=== PATIENT | female | born 1950 | race Caucasian/White ===

== ENCOUNTER → 2024-05-23 08:53 | Outpatient (REF) | payer MEDICARE, OTHER, SELFPAY | LOC: PAVMRI 08:53 | PROVIDERS: ATTENDING PHYSICIAN Family Medicine; FAMILY PHYSICIAN Family Medicine | DX: M54.50 Low back pain, unspecified (principal); M54.16 Radiculopathy, lumbar region; M43.06 Spondylolysis, lumbar region | CPT/HCPCS: 72148 ==

== ENCOUNTER → 2025-05-17 13:36 | Outpatient (REF) | payer MEDICARE, OTHER, SELFPAY | LOC: RAD 13:36 | PROVIDERS: ATTENDING PHYSICIAN Internal Medicine Rheumatology; FAMILY PHYSICIAN Family Medicine | DX: M13.0 Polyarthritis, unspecified (principal) | CPT/HCPCS: 72202; 73130; 73523 ==

== ENCOUNTER → 2025-05-31 13:37 | Outpatient (REF) | payer MEDICARE, OTHER, SELFPAY | LOC: HWRAD 13:37 | PROVIDERS: ATTENDING PHYSICIAN Specialist; FAMILY PHYSICIAN Family Medicine | DX: M19.011 Primary osteoarthritis, right shoulder (principal) | CPT/HCPCS: 73200 ==

== ENCOUNTER 2025-07-11 11:41 | Inpatient (IN) | payer MEDICARE, OTHER, SELFPAY ==
--- NOTE | 2025-06-08 15:56 | CM ---
Demographics: confirmed
Living situation: with partner and daughter
Support Person Post Operatively: Partner
History of
VN: no
SNF: No
Outpatient: [facility]
Has patient purchased required equipment: yes
PCP: Active
Pharmacy: [facility]
Post Operative Discharge Plan: YEYO, plan for discharge to home with family and outpatient PT.
[2025-06-27 13:51] LABS: Hematocrit 38.4 % (37.0-47.0); Hemoglobin 13.0 g/dL (12.0-16.0); Mean Corp Hgb Conc. 33.9 g/dL (33.0-37.0); Mean Corpuscular Volume 86.1 fL (81.0-99.0); Platelet Count 268 10^3/uL (130-400); Red Cell Dist. Width 14.1 % (11.5-14.5)
[2025-06-27 13:56] VITALS: BMI 24.2
[2025-06-27 14:03] LABS: ALT (SGPT) 22 U/L (0-35); AST (SGOT) 19 U/L (14-36); Albumin 4.7 g/dl (3.5-5.0); Alkaline Phosphatase 86 U/L (38-126); Blood Urea Nitrogen 19 mg/dl (7-17); Calcium 9.6 mg/dl (8.4-10.2); Carbon Dioxide 29 mmol/L (22-30); Chloride 102 mmol/L (98-107); Estimated Creatinine Clearance 50 ml/min; Glucose 102 mg/dl (70-99); Potassium 4.9 mmol/L (3.5-5.1); Sodium 137 mmol/L (135-145); Total Protein 7.0 g/dl (6.3-8.2); eGFR > 60.00
[2025-06-27 16:39] VITALS: BMI 24.2
[2025-06-28 09:40] LABS: Glycohemoglobin (HgbA1c) 5.9 % (4.0-5.6)
[2025-07-11] VITALS (9 sets, daily range): BP systolic 124–147; BP diastolic 51–81; BMI 24.2
--- NOTE | 2025-07-11 10:27 | W.PN.UPDATE ---
Update Note
Progress Note Update
R shoulder OA w/ rotator cuff arthropathy s/p R Reverse TSA w/ Dr Iqbal 07/11/25
DVT prophylaxis - ASA, b/l venous foot pumps
HTN - + parameters - monitor BP
History of post-op NSTEMI/troponin elevation
Coronary artery disease, nonobstructive by cath 2022
- Monitor on tele
Reported left subclavian stenosis with steal - BPs to be taken if R or L LE
GERD - continue PPI therapy
Spinal stimulator with h/o paraspinal infection and possible bacteremia - IV Ancef matt-op
- Doxycycline upon d/c
Daily alcohol - 2 glasses of wine nightly reported
- Supplement w/ thiamine and folic acid
- Gabapentin HS
- Consider Serax
- Monitor for potential s/sx of withdrawal
Hyperlipidemia
Venous insufficiency
Head and neck cancer, thyroid origin, resected s/p radioactive iodine 1983
Hypothyroidism
Depression
Anxiety
Remote tobacco abuse.
[2025-07-11] MEDS: CELEBREX 200 MG PO (12:18)
[2025-07-11] MEDS: TYLENOL 1000 MG PO (12:18)
[2025-07-11] MEDS: NORMOSOL-R/PLASMALYTE-A 1000 IV ×2 (12:45→18:19)
[2025-07-11] MEDS: LIPITOR 40 MG PO (18:23)
[2025-07-11] MEDS: PROTONIX 20 MG PO (18:23)
[2025-07-11] MEDS: SYNTHROID 75 MCG PO (18:23)
[2025-07-11] MEDS: ASPIRIN 325 MG PO (18:23)
[2025-07-11] MEDS: FOLVITE 0.5 MG PO (18:24)
[2025-07-11] MEDS: VITAMIN B1 100 MG PO (18:24)
[2025-07-11] MEDS: CYMBALTA DELAYED RELEASE 90 MG PO (18:24)
[2025-07-11] MEDS: WELLBUTRIN XL (24 hour extended release) 150 MG PO (18:30)
--- NOTE | 2025-07-11 19:14 | PTCARENOTE ---
Pt arrived to [facility] s/p Right reverse TSA. Right shoulder dressing with small sanguineous drainage. Right skin tear dressing at top of primaseal with gauze and tegaderm c/d/i/. Admission questions answered. Bed locked and in lowest position. Care
ongoing.
[2025-07-11] MEDS: TYLENOL 650 MG PO (20:11)
[2025-07-11] MEDS: DIOVAN 160 MG PO (20:12)
[2025-07-11] MEDS: SENOKOT 17.2 MG PO (20:12)
[2025-07-11] MEDS: DECADRON 4 MG PO (20:12)
[2025-07-11] MEDS: COLACE 100 MG PO (20:12)
[2025-07-11] MEDS: BACTROBAN 2% OINTMENT 1 APPLIC NASAL (20:22)
[2025-07-11] MEDS: NEURONTIN 300 MG PO (22:53)
[2025-07-11] MEDS: ANCEF 5 IV (22:53)
[2025-07-12] MEDS: TYLENOL 650 MG PO ×4 (00:46→11:58)
[2025-07-12] MEDS: ROXICODONE 5 MG PO ×2 (00:50→09:47)
[2025-07-12 03:41] VITALS: BP 113/70
[2025-07-12] MEDS: SYNTHROID 75 MCG PO (05:32)
[2025-07-12] MEDS: ANCEF 5 IV (05:32)
[2025-07-12 07:45] VITALS: BP 109/69
[2025-07-12] MEDS: CYMBALTA DELAYED RELEASE 90 MG PO (08:40)
[2025-07-12] MEDS: CELEBREX 200 MG PO (08:41)
[2025-07-12] MEDS: DECADRON 4 MG PO (08:41)
[2025-07-12] MEDS: WELLBUTRIN XL (24 hour extended release) 150 MG PO (08:41)
[2025-07-12] MEDS: COLACE 100 MG PO (08:44)
[2025-07-12] MEDS: PROTONIX 20 MG PO (08:44)
[2025-07-12] MEDS: SENOKOT 17.2 MG PO (08:44)
[2025-07-12] MEDS: FOLVITE 0.5 MG PO (08:44)
[2025-07-12] MEDS: ASPIRIN 325 MG PO (08:44)
[2025-07-12] MEDS: VITAMIN B1 100 MG PO (08:44)
[2025-07-12] MEDS: BACTROBAN 2% OINTMENT 1 APPLIC NASAL (08:45)
[2025-07-12] MEDS: DIOVAN PO (08:45)
--- NOTE | 2025-07-12 09:41 | W.PN.ORTHO ---
Today's Communication / Plan
-
Await OT recs.
D/c later today if remaining clinically stable.
Assessment
.
Distal Motor Intact: Yes
Dressing:
Moderate incisional bleeding noted. Will change dressing.
Assessment:
R shoulder OA w/ rotator cuff arthropathy s/p R Reverse MARTHA w/ Dr Iqbal 07/11/25
DVT prophylaxis - ASA, b/l venous foot pumps
Post-op incisional bleeding - change dressing and monitor
- TXA now to help promote healing
HTN - + parameters - BPs overall stable
History of post-op NSTEMI/troponin elevation
Coronary artery disease, nonobstructive by cath 2022
- Maintaining NSR on tele
Reported left subclavian stenosis with steal - BPs to be taken if R or L LE
GERD - continue PPI therapy
Spinal stimulator with h/o paraspinal infection and possible bacteremia - IV Ancef matt-op
- Doxycycline upon d/c
Daily alcohol - 2 glasses of wine nightly reported
- Supplement w/ thiamine and folic acid
- Gabapentin HS
- Consider Serax
- No s/sx of withdrawal prior to d/c
Hyperlipidemia
Venous insufficiency
Head and neck cancer, thyroid origin, resected s/p radioactive iodine 1983
Hypothyroidism
Depression
Anxiety
Remote tobacco abuse.
Plan
.
Surgery / Date: R Reverse MARTHA w/ Dr Iqbal 07/11/25
DVT Prophylaxis: Aspirin
Activity:
Out of bed.
PT/OT
Discharge Plan: Home
Subjective
.
.:
Patient resting comfortably in bed.
R shoulder pain minimal w/ current pain meds.
Denies any new significant complaints.
Eager for potential d/c today.
Vital Signs and Labs
.
Vital Signs and Labs:
Lab Results
06/27/25 13:25
06/27/25 13:25
Temp Pulse Resp BP Pulse Ox
98.5 F 90 16 109/69 95
07/12/25 03:41 07/12/25 08:45 07/12/25 03:41 07/12/25 08:45 07/12/25 03:41
Non-invasive Hgb result: 14.1
Physical Exam
-
HEENT: No pallor, cyanosis, or jaundice. Throat clear.
NECK: Supple. No JVD.
RESPIRATORY: Lungs clear to auscultation.
CVS: S1, S2 normal. RRR.�
ABDOMEN: Soft, non-tender. No distension.
EXTREMITIES: + RUE sling. Able to wiggle fingers b/l. Good mill order scheduler strength, radial pulses b/l. B/l LE strength equal, no calf pain with palpation/dorsiflexion. Calves soft.
INSTRUMENTATION SUPERVISOR: AOx3. No focal deficits. resawyer grossly intact
--- NOTE | 2025-07-12 09:52 | W.DS.TRANS ---
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
-
Discharge Instructions:
Sleep Apnea Risk Low
Discharge Diagnosis/Procedures R shoulder OA w/ rotator cuff arthropathy s/p R
Reverse TSA w/ Dr Iqbal 07/11/25
Diet Regular
Additional Diets Adequate hydration, minimize opioids, and wear
TEDs stockings to prevent low blood pressure/
dizziness.
Activity As tolerated
Additional Activity Non-weightbearing right upper extremity
Driving Restrictions Not until seen by your Dr
Bathing Restrictions OK to Shower
Wound Care Leave dressing on until seen by surgeon's office
for follow-up.
Instructions:
Stand-Alone Forms: Total Shoulder Replacement D/C
Changes to Home Medications: Yes
Discharge Medications:
DC Medications w/original date entered in [facility]
levothyroxine 75 mcg tablet 75 mcg PO DAILY 04/29/23
omeprazole 20 mg capsule,delayed release 20 mg PO DAILY 04/29/23
duloxetine 60 mg capsule,delayed release 90 mg PO DAILY 05/05/23
atorvastatin 40 mg tablet 40 mg PO QPM #30 tabs 05/28/23
bupropion HCl 150 mg 24 hr tablet, extended release 150 mg PO DAILY 06/26/25
cyanocobalamin (vitamin B-12) 1,000 mcg/mL injection solution 1,000 mcg SC MONTHLY 06/26/25
multivitamin with minerals-folic acid 120 mcg chewable tablet (Women's Multivitamin Gummies) 2 tab PO DAILY 06/26/25
turmeric root extract 150 mg-coby root extract 25 mg chewable tablet 2 tab PO DAILY 06/26/25
Held on 07/12/25. Instructions: Resume on 07/19/25.
celecoxib 200 mg capsule 200 mg PO DAILY Anti-inflammatory #14 caps 06/27/25
dexamethasone 4 mg tablet 4 mg PO BID inflammation #6 tabs 06/27/25
doxycycline hyclate 100 mg capsule 100 mg PO BID infection prevention #10 caps 06/27/25
gabapentin 300 mg capsule 300 mg PO HS sleep/pain #10 caps 06/27/25
ondansetron 4 mg disintegrating tablet 4 mg PO Q6H PRN n/v #20 tabs 06/27/25
oxycodone 5 mg tablet 5 mg PO Q6H PRN 1 tab moderate pain, 2 tabs severe pain #30 tabs 06/27/25
Saccharomyces boulardii 250 mg capsule (Florastor) 250 mg PO BID #10 caps 07/12/25
acetaminophen 500 mg tablet (Acetaminophen Extra Strength) 1,000 mg (2 x 500 mg) PO Q6H #60 tabs 07/12/25
amlodipine 5 mg tablet 5 mg PO DAILY #1 tab 07/12/25
aspirin 325 mg tablet 325 mg PO DAILY #30 tabs 07/12/25
docusate sodium 100 mg capsule 100 mg PO BID #30 caps 07/12/25
polyethylene glycol 3350 17 gram oral powder packet (Miralax) 17 g PO DAILY PRN Constipation #14 ea 07/12/25
sennosides 8.6 mg tablet (Carin-fiordaliza) 17.2 mg (2 x 8.6 mg) PO BID #30 tabs 07/12/25
simethicone 250 mg capsule (Gas-X) 250 mg PO DAILYPRN PRN Flatulance #0 caps 07/12/25
valsartan 160 mg tablet 160 mg PO BID #1 tab 07/12/25
Home Medication Changes
celecoxib 200 mg capsule 200 mg PO DAILY Anti-inflammatory #14 caps 06/27/25
dexamethasone 4 mg tablet 4 mg PO BID inflammation #6 tabs 06/27/25
doxycycline hyclate 100 mg capsule 100 mg PO BID infection prevention #10 caps 06/27/25
gabapentin 300 mg capsule 300 mg PO HS sleep/pain #10 caps 06/27/25
ondansetron 4 mg disintegrating tablet 4 mg PO Q6H PRN n/v #20 tabs 06/27/25
oxycodone 5 mg tablet 5 mg PO Q6H PRN 1 tab moderate pain, 2 tabs severe pain #30 tabs 06/27/25
Saccharomyces boulardii 250 mg capsule (Florastor) 250 mg PO BID #10 caps 07/12/25
acetaminophen 500 mg tablet (Acetaminophen Extra Strength) 1,000 mg (2 x 500 mg) PO Q6H #60 tabs 07/12/25
aspirin 325 mg tablet 325 mg PO DAILY #30 tabs 07/12/25
docusate sodium 100 mg capsule 100 mg PO BID #30 caps 07/12/25
polyethylene glycol 3350 17 gram oral powder packet (Miralax) 17 g PO DAILY PRN Constipation #14 ea 07/12/25
sennosides 8.6 mg tablet (Carin-fiordaliza) 17.2 mg (2 x 8.6 mg) PO BID #30 tabs 07/12/25
Pending Results: No
--- NOTE | 2025-07-12 10:23 | CM ---
Cm reviewed medical records. IMM given.
PLAN: home with family support.
[2025-07-12] MEDS: CYKLOKAPRON 1300 MG PO (10:27)
[2025-07-12 12:00] VITALS: PULSE 95; O2SAT 93
[2025-07-12 12:05] VITALS: BP 149/85
[2025-07-12 14:25] VITALS: BP 135/70
--- NOTE | 2025-07-12 14:51 | W.PN.UPDATE ---
Update Note
Progress Note Update
Incisional bleeding worsened unfortunately after her therapy session today.
Jayson James PA-C cleaned her incision w/ Betadine and applied brooke to the entire incision.
Small gauze was placed over a small skin tear just lateral to the proximal incision.
She was told a little strikethrough in the bandage is probably expected but to call the office should more significant bleeding be present prior to the weekend.
She is clinically stable for d/c.
[2025-07-12] MEDS: TYLENOL PO (16:00)
== END 2025-07-12 15:30 | disposition home or self-care (01) | DRG 483 ==
LOC: 2 SOUTH 11:41
PROVIDERS: ADMITTING PHYSICIAN Specialist; FAMILY PHYSICIAN Family Medicine; REFERRING PHYSICIAN Internal Medicine Cardiovascular Disease
PROC: 0RRJ00Z Replacement of Right Shoulder Joint with Reverse Ball and Socket Synthetic Substitute, Open Approach (ICD-10-PCS; 2025-07-11)
DX: M19.011 Primary osteoarthritis, right shoulder (principal); I10 Essential (primary) hypertension; E78.5 Hyperlipidemia, unspecified; I25.2 Old myocardial infarction; I25.10 Atherosclerotic heart disease of native coronary artery without angina pectoris; I87.2 Venous insufficiency (chronic) (peripheral); Z87.891 Personal history of nicotine dependence; K21.9 Gastro-esophageal reflux disease without esophagitis; F32.A Depression, unspecified; F41.9 Anxiety disorder, unspecified; E89.0 Postprocedural hypothyroidism; Z88.0 Allergy status to penicillin; Z90.710 Acquired absence of both cervix and uterus
CPT/HCPCS: 36415; 73020; 80053; 83036; 85027; 87070; 97167; 97535; C1713; C1776

== ENCOUNTER 2025-09-03 17:27 | Emergency (ER) | payer MEDICARE, OTHER, SELFPAY ==
[2025-09-03 17:29] VITALS: BP 146/84
[2025-09-03 17:49] LABS: Hematocrit 38.5 % (37.0-47.0); Hemoglobin 12.9 g/dL (12.0-16.0); Mean Corp Hgb Conc. 33.5 g/dL (33.0-37.0); Mean Corpuscular Volume 85.4 fL (81.0-99.0); Nucleated Red Blood Cells % 0 %; Platelet Count 264 10^3/uL (130-400); Red Cell Dist. Width 13.8 % (11.5-14.5)
[2025-09-03 18:15] LABS: ALT (SGPT) 26 U/L (0-35); AST (SGOT) 22 U/L (14-36); Albumin 4.5 g/dl (3.5-5.0); Alkaline Phosphatase 87 U/L (38-126); Blood Urea Nitrogen 13 mg/dl (7-17); Calcium 9.4 mg/dl (8.4-10.2); Carbon Dioxide 26 mmol/L (22-30); Chloride 103 mmol/L (98-107); Glucose 124 mg/dl (70-99); Lipase 49 U/L (23-300); Potassium 3.3 mmol/L (3.5-5.1); Sodium 138 mmol/L (135-145); Total Protein 6.8 g/dl (6.3-8.2); eGFR > 60.00
[2025-09-03] MEDS: NSS 1000 IV (19:56)
[2025-09-03] MEDS: TYLENOL 650 MG PO (19:56)
[2025-09-03 20:00] VITALS: BP 128/66
[2025-09-03 20:18] LABS: D-Dimer 1.25 ug/mlFEU (0.00-0.50)
--- NOTE | 2025-09-03 21:01 | ED.GENMED ---
Addendum entered and electronically signed by Sharon Nunez DO 09/05/25 13:30:
[facility] pharmacist called stating that prescription that had been sent by physician central supply assistant is not acceptable, they need attending physician to transmit prescription electronically. I sent prescription as requested
Original Note:
History of Present Illness
General
Chief Complaint: Flank Pain
Source: patient
Exam Limitations: none
Time Seen by Provider: 09/03/25 19:14
Nursing documentation reviewed up to this point in time: agreed with
History of Present Illness
History of Present Illness:
Patient is a 75-year-old female with history of hyperlipidemia, hypothyroid who presents to the emergency department with left flank pain X 1 week. She describes a sharp/shooting pain in her left upper flank which occasionally radiates into her
left upper abdomen. She denies any radiation of pain into her left lower abdomen or groin. No radiation into leg. Pain is worse when laying flat at night. She denies any associated chest pain or shortness of breath. Patient denies any fever,
nausea/vomiting. She denies any urinary symptoms. No diarrhea or constipation. No productive cough.
Patient denies any known inciting injury or trauma.
Of note�she does report similar symptoms a few months ago which was attributed to gas pains after visit to urgent care. Symptoms did eventually improve at that time.
She denies any recent travel. She did have a right shoulder replacement approximately 1.5 months ago. She is not on any oral anticoagulation.
Review of Systems
Review of Systems
Allergies reviewed?: Yes
All Other Systems: ROS reviewed and negative except as documented in HPI and ROS
Phy Exam
Physical Exam
Physical Exam:
Vitals: Patient's vital signs are stable. Afebrile
General: Patient is uncomfortable appearing due to pain.
Skin: Warm and dry, no rashes or lesions
Head: Normocephalic, atraumatic
Eyes: Sclera nonicteric.
Throat: Protecting airway
Neck: Normal ROM, no cervical spine tenderness, no meningismus
Cardiac: Regular rate and rhythm, no murmurs.
Pulm: Normal respiratory effort. Lungs clear bilaterally
Abdomen: Abdomen soft and nontender
Back: Mild reproducible tenderness in left upper flank. No midline tenderness. No rash or ecchymoses.
Extremities: No evidence of cyanosis or edema. Strength 5/5 in bilateral upper and lower extremities. Distal pulses intact
Neuro: AAOx3. Grossly intact.
Psychiatric: Normal affect.
Course
Orders/Labs/Results
Orders:
Orders
09/03/25 17:42
Complete Blood Count/With Diff Urgent
Comprehensive Metabolic Panel Urgent
Lipase Urgent
09/03/25 19:39
0.9% Sodium Chloride 1000 ml [Nss] 1,000 ml IV BOLUS
Acetaminophen [Tylenol] 650 mg PO NOW STA
09/03/25 19:40
Electrocardiogram (*1) Urgent
Reason for Study: Abdominal Pain
EKG- Treatment ONCE
09/03/25 19:59
D-Dimer Urgent
09/03/25 20:57
CT Pe/abd/pel W Urgent
Reason For Exam: Left upper flank pain
Morphine Sulfate 2 mg IV NOW STA
09/03/25 21:35
Urinalysis Reflex To Culture Urgent
Date Specimen was Collected: 09/03/25
Time Specimen was Collected: 19:44
Urine Microscopic Reflex Cult Urgent
Urine Culture Urgent
BERNARDO Source: U
Specimen Description:
Date Specimen was Collected: 09/03/25
Time Specimen was Collected: 19:44
Abnormal Lab Results
09/03/25 09/03/25 09/03/25
17:42 19:59 21:35
D-Dimer 1.25 H ug/mlFEU
(0.00-0.50)
Potassium 3.3 L mmol/L
(3.5-5.1)
Glucose 124 H mg/dl
(70-99)
Leukocyte Esterase Rfl 1+ A
(Negative)
Urine Bacteria (Reflex) Few A
(Negative)
09/03/25 17:42
09/03/25 17:42
Vital Signs
Initial and Last Documented VS:
Initial Vital Signs
Temp Pulse Resp BP Pulse Ox
98.4 F 101 18 146/84 95
09/03/25 17:29 09/03/25 17:29 09/03/25 17:29 09/03/25 17:29 09/03/25 17:29
Last Documented Vital Signs
Temp Pulse Resp BP Pulse Ox
98.4 F 93 18 136/62 95
09/03/25 17:29 09/03/25 22:36 09/03/25 21:00 09/03/25 22:38 09/03/25 22:31
MDM/Problems Addressed
Differential Diagnosis Includes:
Not limited to: Muscle strain/spasm, costochondritis, pleurisy, pulmonary embolism, renal colic, pyelonephritis, etc.
MDM/Problems Addressed:
75 year-old female presenting with one week of left upper flank pain with occasional radiation to left upper abdomen. No infectious symptoms. No vomiting, urinary symptoms. No known inciting injury or trauma. She is approximately 1.5 months s/p
right total shoulder replacement.
Vitals and physical exam as above.
Differential broad. Possibly musculoskeletal in nature. Other considerations would be intra-abdominal source, including renal colic, pyelonephritis, diverticulitis. Patient would be at increased risk of clot given she is not anticoagulated with
recent surgery however, vital signs are stable with relatively low suspension for pulmonary embolism.
ED plan: Will obtain basic labs, UA. Will screen with d-dimer. Will treat pain, give IV fluids and reassess.
Update: Basic labs unremarkable. d-dimer was unfortunately elevated. Will obtain CT PE study and abdomen/pelvis w/ IV contrast for complete evaluation.
Update: CT scan reveals no evidence of pulmonary embolism or acute abnormality in abdomen/pelvis. Urine shows no evidence of infection or RBC.
Very thorough work-up in the emergency department has been unremarkable. At this point � suspect musculoskeletal etiology. May be related to recent right shoulder operation and limited use of right upper extremity subsequently increasing strain on
LUE.
Her pain is currently well controlled. Feel stable for discharge home with continued outpatient follow-up, pain management. Strict return precautions discussed. Patient comfortable with discharge home.
Chronic conditions affecting care:
Recent right total shoulder replacement
Acute Exacerbation and/or Progression of Chronic Illness:
N/A
*Radiology
Radiology exam reviewed: radiology read reviewed
*Pulse Oximetry
SaO2: 96
Oxygen Mode of Delivery: Room air
Patient hypoxic: no
*Data Operations Leader Interpretation
Rate: normal
Interpretation: normal
Heart Rate: 90
Rhythm: sinus
*Critical Care Note
Total Time (30-74mins, 75-104mins- exclusive of procedures): Not Applicable
ED Attending Note
-
Portions of this chart may have been created with voice recognition software.� Occasional wrong word or��sound alike� substitutions may have occurred due to the inherent limitations of voice recognition software.
Discharge Plan
Departure
Patient Disposition: Home (Routine Discharge)
Date of Disposition: 09/03/25
Time of Disposition: 22:44
Patient with high blood pressure during this ER visit?: Yes
Condition: Good
Discharge Problem:
Left flank pain
Instructions: Flank Pain (DC), BLOOD PRESSURE
Prescriptions:
New
tramadol 50 mg tablet
50 mg PO HS Qty: 10 0RF
No Action
levothyroxine 75 mcg Tablet
75 mcg PO DAILY
omeprazole 20 mg Capsule,Delayed Release(Dr/Ec)
20 mg PO DAILY
duloxetine 60 mg Capsule,Delayed Release(Dr/Ec)
90 mg PO DAILY
Rx Instructions:
30 + 60 tab
atorvastatin 40 mg Tablet
40 mg PO QPM Qty: 30 11RF
cyanocobalamin (vitamin B-12) 1,000 mcg/mL solution
1,000 mcg SC MONTHLY
bupropion HCl 150 mg Tablet Extended Release 24 Hr
150 mg PO DAILY
multivit with min-folic acid [Women's Multivitamin Gummies] 120 mcg Tablet,Chewable
2 tab PO DAILY
turmeric root-coby root ext 150-25 mg Tablet,Chewable
2 tab PO DAILY
celecoxib 200 mg capsule
200 mg PO DAILY Qty: 14 0RF
Rx Instructions:
*POST-OP USE ONLY
*take with food
doxycycline hyclate 100 mg capsule
100 mg PO BID Qty: 10 0RF
Rx Instructions:
Take with probiotic
dexamethasone 4 mg tablet
4 mg PO BID Qty: 6 0RF
Rx Instructions:
take with food
post-op use only
gabapentin 300 mg capsule
300 mg PO HS Qty: 10 0RF
Rx Instructions:
*POST-OP USE ONLY
ondansetron 4 mg tablet,disintegrating
4 mg PO Q6H PRN (Reason: n/v) Qty: 20 0RF
Rx Instructions:
take 1/2h b/f pain med if recurrent nausea
allow to dissolve in mouth w/o water
oxycodone 5 mg tablet
5 mg PO Q6H PRN (Reason: 1 tab moderate pain, 2 tabs severe pain) Qty: 30 0RF
Rx Instructions:
Ongoing therapy
POST-OP USE ONLY
aspirin 325 mg Tablet
325 mg PO DAILY Qty: 30 0RF
Rx Instructions:
Take daily x4 weeks for blood clot prevention.
sennosides [Carin-fiordaliza] 8.6 mg Tablet
17.2 mg PO BID Qty: 30 0RF
docusate sodium 100 mg Capsule
100 mg PO BID Qty: 30 0RF
acetaminophen [Acetaminophen Extra Strength] 500 mg tablet
1,000 mg PO Q6H Qty: 60 0RF
Rx Instructions:
DO NOT exceed >4000 mg daily.
Saccharomyces boulardii [Florastor] 250 mg capsule
250 mg PO BID Qty: 10 0RF
Rx Instructions:
Over the counter. Take while on antibiotic.
If unavailable, choose a different probiotic.
polyethylene glycol 3350 [Miralax] 17 gram powder in packet
17 g PO DAILY PRN (Reason: Constipation) Qty: 14 0RF
Rx Instructions:
Add to bowel regimen of Colace and Senna should no bowel movement occur within 48-72 hours post-surgery.
amlodipine 5 mg Tablet
5 mg PO DAILY Qty: 1 0RF
Rx Instructions:
HOLD IF systolic blood pressure <130 while on post-surgical narcotics.
valsartan 160 mg Tablet
160 mg PO BID Qty: 1 0RF
Rx Instructions:
HOLD IF systolic blood pressure <130 while on post-surgical narcotics.
Gas-X 250 mg Capsule
250 mg PO DAILYPRN PRN (Reason: Flatulance) Qty: 0 0RF
Referrals:
Jose E Silva MD [Family Provider, Family Practice] - Follow up in 5-7 days
Activity Restrictions/Additional Instructions:
RETURN TO THE EMERGENCY DEPARTMENT WITH ANY FEVER PRODUCTIVE COUGH, INTRACTABLE PAIN, CHEST PAIN OR SHORTNESS OF BREATH, SEVERE ABDOMINAL PAIN, INABILITY TO URINATE, NUMBNESS/TINGLING OR WEAKNESS IN LOWER EXTREMITIES, WORSENING IN CURRENT SYMPTOMS,
OR ANY OTHER CONCERNS
- You came to the emergency department today with left flank / upper abdominal pain. Your symptoms may be muscular in nature. There is no evidence of a urinary tract infection or obstructing kidney stone. You are not found to have any acute
abnormality in your lung.
- Please continue to take Tylenol and use lidocaine patches as needed for pain. For severe pain at night I sent a prescription for tramadol which you can take. This may cause drowsiness.
- Please follow-up with your primary care provider for further evaluation/management to ensure that your symptoms are improving.
Monitor your symptoms closely and return to the emergency department with any acute worsening/new symptoms or any other concerns
Interventions
Interventions:
*Risk Screen - Suicide Last Done: 09/03/25 17:29
*General Assessment Last Done: 09/03/25 17:29
*Neglect/Abuse Screening Last Done: 09/03/25 17:29
*ED- Fall Risk Assessment Last Done: 09/03/25 19:30
*ED COVID-19 Vaccine History Last Done: 09/03/25 19:30
*ED Influenza Vaccine History Last Done: 09/03/25 19:30
*Nursing Disposition Last Done: 09/03/25 23:30
YQ-[id number] Assessment Last Done: 09/03/25 19:30
ED-Female Genitourinary Assessment Last Done: 09/03/25 19:30
Discharge Date and Time
Discharge Date/Time: 09/03/25 23:30
Print Language: CITIZEN OF [place]
[2025-09-03] MEDS: MORPHINE SULFATE 2 MG IV (21:12)
[2025-09-03 22:04] LABS: Urine Character Clear (Clear)
[2025-09-03 22:14] LABS: Urine Red Blood Cell 0-2 /HPF (0-2); Urine Urothelial Cell 0-2 /LPF (FEW)
[2025-09-03 22:38] VITALS: BP 136/62
== END 2025-09-03 23:30 | disposition home or self-care (01) ==
LOC: EMR 17:27
PROVIDERS: Emergency Medicine; Physician Assistant; EMERGENCY PHYSICIAN Emergency Medicine; FAMILY PHYSICIAN Family Medicine
DX: R10.A2 Flank pain, left side (principal); R03.0 Elevated blood-pressure reading, without diagnosis of hypertension; E78.5 Hyperlipidemia, unspecified; E03.9 Hypothyroidism, unspecified; Z96.611 Presence of right artificial shoulder joint
CPT/HCPCS: 99284; 96374; 96361; 71275; 74177; 80053; 81003; 81015; 83690; 85025; 85379; 87086; 93005; Q9967